=== PATIENT | female | born 1995 | race Caucasian/White ===

== ENCOUNTER → 2022-01-05 | Outpatient (CLI) | payer MEDICAID, SELFPAY ==
--- NOTE | 2022-01-05 17:54 | MRI_ITS ---
STUDY: MR Knee W/O Contrast 01/05/2022 7:02 PM REASON FOR EXAM: Female, 26 years old. left knee pain TECHNIQUE: Standardized fat and water weighted pulse sequences were obtained in all 3 orthogonal planes. COMPARISON: None. FINDINGS: Normal medial meniscus. Normal hyaline cartilage of the medial femorotibial compartment. Normal medial femoral condyle and tibial plateau. Normal medial collateral ligamentous complex (MCL). Normal distal semimembranosus, gracilis and semitendinosus tendons. Normal lateral meniscus. Normal hyaline cartilage of the lateral femorotibial compartment. There is reactive marrow edema of the lateral tibial plateau. There is reactive marrow edema of the proximal fibula. Normal proximal tibiofibular articulation. Normal lateral collateral (fibular) ligament. Normal popliteus tendon. Normal biceps femoris tendon. Normal anterior cruciate ligament (ACL). Normal posterior cruciate ligament (PCL). Normal congruent patellofemoral articulation. Normal hyaline cartilage of the patellofemoral compartment. Normal medial and lateral patellar retinaculum. Normal quadriceps tendon. Normal patellar tendon. Normal Hoffa''s fat pad. There is no joint effusion. The soft tissues are unremarkable. The otherwise visualized osseous structures are unremarkable. MRI/Lower Ext Joint Only (Routine) IMPRESSION: There is reactive marrow edema of the lateral tibial plateau. There is reactive marrow edema of the proximal fibula. Electronically Signed: Robert Alvarez MD at 19:04 EDT ,
== END | disposition home or self-care (01) ==
LOC: MRI 17:54
PROVIDERS: Referring Provider Nurse Practitioner; Visit Provider Nurse Practitioner
DX: S83.8X2A Sprain of other specified parts of left knee, initial encounter (principal)
CPT/HCPCS: 73721

== ENCOUNTER 2022-02-11 10:30 | Outpatient (RCR) | payer MEDICAID, SELFPAY ==
--- NOTE | 2022-01-14 13:24 | HP.PTEVAL_ITS ---
Patient's Visit Information SHAYY JONES is a 26 year old F referred to Physical Therapy by DILEEP Morrow with a diagnosis of REATIVE BONE MARROW EDEMA LEFT KNEE. Date of Evaluation: 01/14/22 Physical Therapist: Saul Guillaume, PT, Cert MDT, OCS - Visit Plan Frequency: 2x /Week Duration: 6 Weeks Plan: PT INTERVENTIONS MODALTIES PAIN RELEIVE ,PROGRESSION TO STRENGTHENING QUADS/HAMS/HIP ,AND FUNCTIONAL STRENGTH WITH BY MINDFULL OF GRADED PROGRESSION OF CLOSED CHAIN PROGRESSION - Subjective This 26 y/o female presents to physical therapy with right knee pain. 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 Patient waited ~ 2 weeks and finally seen Ortho did x-rays and MRI showed tibia plateau reactive bone marrow edema. Recommended PT and meds didn't help. Pain located global medial and superior patella. Pain described as sharp pain /pinching behind knee. Denies paresthesia/tingling . Aggravating factors squatting/kneeling/stairs/walking and standing extended periods . Alleviating none. Patient does ATV racing and said okay to continue which patients goal. Patient did have left knee surgery plica removed . Pain affects sleeping. Patient goal no pain racing and daily function. SOCIAL: single with 1 child. 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 GAIT: reciprocal pattern. NEURO: intact. PALAPTION: tender medial joint line tibia plateau ,superior patella. EDEMA: unremarkable. AROM: 0-140 degrees supine flexion. FLEXABILITY: hamstrings min tight. 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 SQUATS: knee valgus knee ,pain - Special Tests L Knee Miguel - Meniscus: Negative L Knee Apley - Meniscus: Negative L Knee Almaz - ACL: Negative L Knee Posterior Drawer - PCL: Negative L Knee Valgus - MCL: Negative L Knee Varus - LCL: Negative L Knee Patellar Grind - PFS: Negative - Balance/Special Test Scores Lower Extremity Functional Score: 36 - Goals Goal 1:: Patient to be I with HEP for knee Goal Time Frame: 4-6 Weeks Goal 2:: Patient to demonstrate 50% improvement with decrease pain and function with return to sport Goal Time Frame: 4-6 Weeks Goal 3:: Patient to demonstrate increase peak force of quads/hams/hip by 10 to improve avtivity and racing Goal Time Frame: 4-6 Weeks Goal 4:: Patient be able to lift ,squat /knee /stairs with min limitations to improve function and racing ATV Goal Time Frame: 4-6 Weeks Goal 5:: Patient to improve LFES score by 10 points or > to improve QOL and walking Goal Time Frame: 4-6 Weeks - Rehabilitation Potential Physical Therapy Diagnosis: This patient has pain in knee after landing awkwardly and twisted knee thus had MRI showed reactive to bone marrow from MRI with pain affects function with kneeling/squatting/stairs walking and racing with ATV racing thus benefit from skilled PT Rehabilitation Potential: Good - Anticipated Interventions Patient/Client Instruction: Educate patient on: Condition, Plan of Care For the Purpose of:: To decrease pain, To increase ROM, To improve muscle performance and motor function, To improve ability to perform ADL's, To increase tolerance to activity/condition/position, To improve ability of physical actions for home/community/work/leisure, To improve health of tissue, To improve endurance, To improve balance, Other Other: ATV RACING Therapeutic Exercise to Include: Strength training, Power training, Endurance training, Balance training, Agility training, Active ROM Comment: QUADS/HAMS/HIP For the Purpose of:: To decrease pain, To improve muscle performance and motor function, To improve performance and independence with ADL's, To improve ability of physical actions for home/community/work/leisure, To improve health of tissue, To decrease soft tissue restriction, To improve endurance, Other Other: ATV RACING TENS: Yes IF ES: Yes Cryotherapy (ice pack, ice massage): Yes Thermo therapy (hot pack): Yes Ultrasound (thermal/non thermal): Yes For the Purpose of:: To decrease pain, To improve nutrient delivery to tissue, To increase oxygenation perfusion, To improve muscle performance and motor function, To improve health of tissue, To decrease soft tissue restriction Thank you for the opportunity to evaluate your patient. For Medicare and Medicare HMO plans, please review the plan of care and approve it. It will need to be FAXED BACK to us at [phone] for Medicare purposes. For Medicare only, by signing this I certify the plan of care. Please let me know if there are questions or concerns regarding this plan of care. Physician Signature: Date:___
--- NOTE | 2022-02-11 11:04 | HP.PTDCSUM_ITS ---
It has been my pleasure to treat SHAYY JONES referred by Laurie Cloud NP- C, with the diagnosis of REACTIVE BONE MARROW EDEMA LEFT KNEE for a total of 6 visit(s). Discharge Date: 02/11/22 Please see the following information for a summary of their discharge status. Subjective: Doing well ..no pain. Seen last DR doing well Left Knee Pain Intensity (Out of 10): 0 % Improvement: 100 Objective/Function: GAIT: reciprocal pattern. PALAPTION: unremarkable. AROM: 0-145 SUPINE KNEE FLEXION. MMT: QUADS/HAMS 5/5,HIP 5/5. SQUATS NO PAIN Goal 1:: Patient to be I with HEP for knee Goal Progress: Goal Met Goal 2:: Patient to demonstrate 50% improvement with decrease pain and function with return to sport Goal Progress: Goal Met Goal 3:: Patient to demonstrate increase peak force of quads/hams/hip by 10 to improve avtivity and racing Goal Progress: Goal Met Goal 4:: Patient be able to lift ,squat /knee /stairs with min limitations to improve function and racing ATV Goal Progress: Goal Met Goal 5:: Patient to improve LFES score by 10 points or > to improve QOL and walking Goal Progress: Goal Met Plan: D/C Discharge Comments: HEP If there are questions or concerns regarding this patient's physical therapy, please feel free to call me at [phone]. Thank you for the referral of this patient. Sincerely, Saul Guillaume, PT, Cert MDT, OCS Balance/Gait/Functional tests - Balance/Special Test Scores Lower Extremity Functional Score: 75
== END 2022-02-11 19:00 | disposition home or self-care (01) ==
LOC: PT 10:30
PROVIDERS: Referring Provider Nurse Practitioner; Visit Provider Nurse Practitioner
DX: R93.7 Abnormal findings on diagnostic imaging of other parts of musculoskeletal system (principal); R60.0 Localized edema
CPT/HCPCS: 97110; 97161

== ENCOUNTER → 2022-05-27 | Outpatient (CLI) | payer BC, MEDICAID, SELFPAY ==
--- NOTE | 2022-05-27 11:04 | MRI_ITS ---
STUDY: MRI LEFT KNEE REASON FOR EXAM: Female, 27 years old. Pain/swelling/giving out TECHNIQUE: Standardized fat and water weighted pulse sequences were obtained in all 3 orthogonal planes. COMPARISON: X-ray of the left knee dated DECEMBER 17, 2021. MRI of the left knee dated JANUARY 05, 2022 FINDINGS: Previously seen reactive edema of the lateral tibial plateau and proximal aspect of the fibula has resolved. No marrow edema or occult fractures or osteochondral defects are seen on the current study. Normal medial meniscus. Normal hyaline cartilage of the medial femorotibial compartment. Normal medial femoral condyle and tibial plateau. Normal medial collateral ligamentous complex (MCL). Normal distal semimembranosus, gracilis and semitendinosus tendons. Normal lateral meniscus. Normal hyaline cartilage of the lateral femorotibial compartment. Normal lateral femoral condyle and tibial plateau. Normal proximal tibiofibular articulation. Normal lateral collateral (fibular) ligament. Normal popliteus tendon. Normal biceps femoris tendon. Normal anterior cruciate ligament (ACL). Normal posterior cruciate ligament (PCL). Normal congruent patellofemoral articulation. The trochlear groove is shallow There is diffuse, less than 50% thickness articular cartilage loss of the patellofemoral compartment. Normal medial and lateral patellar retinaculum. Normal quadriceps tendon. Normal patellar tendon. Normal Hoffa''s fat pad. Small joint effusion noted. The soft tissues are unremarkable. The otherwise visualized osseous structures are unremarkable. MRI/Lower Ext Joint Only (Routine) IMPRESSION: 1. Previously seen reactive edema of the lateral tibial plateau and proximal aspect of the fibula has resolved. 2. No marrow edema or occult fractures or osteochondral defects are seen on the current study. 3. Shallow trochlear groove 4. Small joint effusion Electronically Signed: Hernandez Perla MD at 14:54 EDT ,
== END | disposition home or self-care (01) ==
PROVIDERS: Referring Provider Nurse Practitioner; Visit Provider Nurse Practitioner
DX: M23.92 Unspecified internal derangement of left knee (principal); M79.89 Other specified soft tissue disorders
CPT/HCPCS: 73721

== ENCOUNTER 2022-06-29 08:00 | Outpatient (RCR) | payer BC, MEDICAID, SELFPAY ==
--- NOTE | 2022-06-01 09:30 | HP.PTEVAL ---
Patient's Visit Information SHAYY JONES is a 27 year old F referred to Physical Therapy by DILEEP Morrow with a diagnosis of Chrondromalacia of left knee. Date of Evaluation: 06/01/22 Physical Therapist: Sonya Hendricks DPT - Visit Plan Frequency: 2x /Week Duration: 4 Weeks Plan: Focus on LE and Core strength/stabilization- Patellar Edmonds,. Tapeing- ultrasound PRN. HEP Given IE: SLR, VMO SLR, Clams with GTB, Prone Hip Extn - Subjective Patient reports that she got better after therapy in January but the pain just came back- Pain is located on the top of the knee cap on the left knee. The pain is there all the time. Worst: 5/10 Agg: its just there all the time- walking hurts more. Eases: nothing Best: 5/10. Pain radiates to the mid thigh and then radiates to the ankle. Does have some Numbness in from her knee down randomly. Describes the pain as dull and achy. She has had an injection 3 years in her knee- which did not help. She had her Plica Band Removed about 3 years ago- that helped and she was painfree after that. Had and MRI last week- she some edema. No injection this time. In therapy they did exercise- but this time it would be different because she would be strengthing the muscles. Diagnosis of Chondro Malacia of the Patella. Sleep: does not wake her up. 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 PMHx/Meds: none - Objective Posture: fair throughout. Gait: slightlt antalgic- decreased stance on the left LE. Stairs: asc: recip with no HR. Desc: mild decrease control. HR/TR: able. SLS: 30 sec ROM: Knee: 0-140 degrees. Strength: Core: fair, Hip: 4+/5, Knee: Extn: 47.7, Flexion: 33.8, Ankle: 5/5. SLR: mild lag. Flex: HS: severe, Gastroc: moderate. Palpation: patellar tracks laterally. Decreased pain with McConnel Taping of the Patella. 47.7. 33.8 - Balance/Special Test Scores Lower Extremity Functional Score: 59 - Goals Goal 1:: Patient will be I with HEP and progression Goal Time Frame: 4-6 Weeks Goal 2:: Patient will demonstrate proper patellar tracking Goal Time Frame: 4-6 Weeks Goal 3:: Patient will maintain proper posture t/o tx session to demo increased core s/s Goal Time Frame: 4-6 Weeks Goal 4:: Patient will report 80% improvement Goal Time Frame: 4-6 Weeks - Rehabilitation Potential Physical Therapy Diagnosis: Patient presents with hypomobility- she has decreased LE and core strength/stabilization, flex and muscular endurance leading to poor patellar tracking and increased difficulty with ADL's. Rehabilitation Potential: Good - Anticipated Interventions Patient/Client Instruction: Educate patient on: Benefits of Fitness Program Therapeutic Exercise to Include: Strength training, Endurance training, Balance training, Coordination, Agility training, Body mechanics, Postural training, Flexibilty training, Gait and locomotor training, Neuromotor development, Dynamic Lumbar Stabilization, Scapular Strength/Stabilization For the Purpose of:: To improve muscle performance and motor function TENS: Yes Cryotherapy (ice pack, ice massage): Yes Thermo therapy (hot pack): Yes Ultrasound (thermal/non thermal): Yes Thank you for the opportunity to evaluate your patient. For Medicare and Medicare HMO plans, please review the plan of care and approve it. It will need to be FAXED BACK to us at [phone] for Medicare purposes. For Medicare only, by signing this I certify the plan of care. Please let me know if there are questions or concerns regarding this plan of care. Physician Signature: Date:
--- NOTE | 2022-06-29 08:57 | HP.PTDCSUM ---
It has been my pleasure to treat SHAYY JONES referred by DILEEP Morrow, with the diagnosis of Chrondromalacia of left knee for a total of 7 visit(s). Discharge Date: Please see the following information for a summary of their discharge status. Subjective: She is still having pain- she went to the surgeon- she is having a scope in the near future to make sure everything is okay inside from her first surgery. She feels that she is not making progress and the knee is not any stronger. Pain at its worst: 10/10- Best: 4/10. % Improvement: 0 Objective/Function: No change since IE Goal 1:: Patient will be I with HEP and progression Goal 2:: Patient will demonstrate proper patellar tracking Goal 3:: Patient will maintain proper posture t/o tx session to demo increased core s/s Goal 4:: Patient will report 80% improvement Plan: 06/29/22: Discharge- pt to have scope by MD. Focus on LE and Core strength/stabilization with Patellar Edmonds Taping and ultrasound PRN If there are questions or concerns regarding this patient's physical therapy, please feel free to call me at [phone]. Thank you for the referral of this patient. Sincerely, Sonya Hendricks, [facility] Balance/Gait/Functional tests - Balance/Special Test Scores Lower Extremity Functional Score: 62
== END 2022-06-29 10:20 | disposition home or self-care (01) ==
LOC: PT 08:00
PROVIDERS: Referring Provider Nurse Practitioner; Visit Provider Nurse Practitioner
DX: M22.40 Chondromalacia patellae, unspecified knee (principal); M25.562 Pain in left knee
CPT/HCPCS: 97035; 97110; 97162; 97164

== ENCOUNTER 2022-07-28 07:03 | Day surgery (SDC) | payer BC, MEDICAID, SELFPAY ==
[2022-07-28] VITALS (10 sets, daily range): BP systolic 103–117; BP diastolic 58–78; PULSE 60–88; RESP 16–18; TEMP 36.7–36.8; O2SAT 96–100; BMI 20.2
[2022-07-28 07:35] LABS: Internal QC Validated? YES +Cl - CLEAR BKGD; Pregnancy, Urine Negative Negative
[2022-07-28] MEDS: Lactated Ringers 1,000 ML 15 ML IV (07:46)
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
[2022-07-28] MEDS: Cefazolin 2 GM in 0.9% Normal Saline 100 ML IV (08:56)
[2022-07-28] MEDS: Epinephrine (1 mg/ml) 1 MG/ML VIAL (09:24)
--- NOTE | 2022-07-28 09:47 | OP.PCM_ITS ---
Problems Associated Problem List Diagnoses (1) Plica syndrome, left knee: Report of Operation Date of Procedure: 07/28/22 Pre-Operative Diagnosis: left knee plica syndrome Post-Operative Diagnosis: same Surgery/Procedure Performed:: left knee arthroscopy, debridement Surgeon: Migue Mckeon Type of Anesthesia: General and Local Anesthesiologist: Rush Rizo Estimated Blood Loss (mL): 10 Description of Procedure: Patient was brought to the operating room theater.? Placed supine on the opera ting room table.? All bony prominences appropriately padded.? SCD on the nonoperative side.? 2 g IV Ancef administered prior to the start of the procedure.? General anesthesia induced.? Stress positioner for the patient's left lower extremity.? Tourniquet applied to the thigh appropriately padded.? Left lower extremity prepped and draped in the usual sterile fashion with chlorhexidine-based prep solution allowing over 3 minutes drying time prior to draping.? Preoperative timeout performed to confirm the site patient and the surgery. Began by making standard anterolateral and anteromedial arthroscopy portals.? I examined the full intra-articular extent of the knee.? No loose bodies gutters normal.? Cartilage of the patellofemoral joint appeared normal. There is very slight grade 1 softening medial aspect of the lateral femoral condyle otherwise the cartilage in the lateral and medial compartments appeared normal. Medial lateral meniscus were stable and solid to probing. ACL was normal. Examination under anesthetic revealed full range of motion stable Almaz and pivot shift testing as well as medial and lateral corners. There was no evidence of medial sided plica that it slightly appeared to have scarred and regrown. I used a shaving instrument to gently debride away along the medial side of the knee intra-articularly. There is also some redundant tissue and synovial fraying at the distal pole the patella as well as at the lateral portal area. I gently debrided this again. I tested knee range of motion again full patellar tendon in continuity and no more crepitus seeming to come from the patellofemoral joint. Arthroscopy pictures taken and saved onto the system throughout the case. Case was terminated arthroscope withdrawn. Subcutaneous tissue closed with 3-0 Monocryl sutures. Skin cleaned with wet and dry dressing knee drained of any sort of intra-articular fluid. Skin cleaned with wet and dry dressing followed by Steri-Strips Adaptic 4 x 4 gauze abdominal pad dressing and 6 inch Michael bandage. Patient woken up from the general anesthetic transferred off the operating room table and taken to postanesthetic care unit in stable condition. All sponge needle instrument counts were correct no complications estimated blood loss 10 cc plan for the patient weightbearing as tolerated with crutches gentle range of motion follow-up in the office in 2 days time and discharged home when they are comfortable and stable. Complications none Admit VTE Documentation VTE Present on Admission: No VTE Mechan Device Prophylaxis: SCD's Reason prophylaxis not ordered:: Treatment Not Indicated Procedures Musculoskeletal [id number]: Other Procedure See Report
--- NOTE | 2022-07-28 09:51 | DCINST_ITS ---
Discharge Instructions Diet Discharge Diet: No restrictions Activity Discharge Activity: Return to Normal Activity and Use Crutches Weight Bearing Status: Weight bearing as tolerated Dressing / Incision Call your doctor if your incision/area has: Continuous Slow Oozing, Sudden Increased Bleeding, Increased Pain/ Swelling, Increased Redness, Foul Smelling Discharge and Swelling at the incision site Remove Dressing in: leave in place till F/U Follow Up Care Please Follow Up With: Migue Mckeon MD When: 2 days Test Results: Test results from this visit will be discussed in further detail at your follow- up appointment, if applicable. Discharge Plan Admission Attending Provider: Migue Mckeon Primary Care Provider: Care Physician,No Primary Instructions Patient Instructions: After Knee Arthroscopy Discharge Orders/Prescriptions Prescriptions: New oxycodone-acetaminophen [Percocet] 5-325 mg tablet 1 tab PO Q4H MDD 6 PRN (Reason: pain) 7 Days Qty: 20 0RF No Action acetaminophen [Tylenol] 325 mg Tablet 650 mg PO Q4H PRN (Reason: Pain) Referrals / Follow Up: Migue Mckeon MD [Med Staff - Active Staff] - Care Physician,No Primary [Primary Care Provider] - Disposition Disposition (needs filled in before D/C Order can be placed): Home, Self Care
[2022-07-28] MEDS: oxyCODONE 5 MG Tablet PO (11:55)
[2022-07-28] MEDS: DiphenhydrAMINE 50 MG/ML Syringe 25 MG IV (12:26)
[2022-07-28] MEDS: Metoclopramide 10 MG/2 ML Vial IV (12:28)
== END 2022-07-28 13:09 | disposition home or self-care (01) ==
LOC: SDC 07:05 → AC 07:06
PROVIDERS: Anesthesiology; Referring Provider Orthopaedic Surgery Sports Medicine; Visit Provider Orthopaedic Surgery Sports Medicine
PROC: (CPT 29870; principal; 2022-07-28 08:50)
DX: M67.52 Plica syndrome, left knee (principal)
CPT/HCPCS: 29877; 01400; 81025; J7120; J2405

== ENCOUNTER 2022-08-04 15:46 | Outpatient (RCR) | payer BC, MEDICAID, SELFPAY ==
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
== END 2022-08-04 19:00 | disposition home or self-care (01) ==
LOC: PT 15:46
PROVIDERS: Referring Provider Orthopaedic Surgery Sports Medicine; Visit Provider Orthopaedic Surgery Sports Medicine
DX: M67.52 Plica syndrome, left knee (principal)
CPT/HCPCS: 97161

== ENCOUNTER 2022-12-01 07:00 | Outpatient (RCR) | payer BC, MEDICAID, SELFPAY ==
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
--- NOTE | 2022-12-13 09:38 | HP.PT.NRP ---
SHAYY JONES was seen in my office for initial evaluation on 11/24/22. The following Plan of Care was established for this patient: Initial Frequency: 2x /Week Initial Duration: 4 Weeks Patient/Client Instruction: Educate patient on: Benefits of Fitness Program Therapeutic Exercise to Include: Strength training, Endurance training, Agility training, Body mechanics, Postural training, Flexibilty training, Neuromotor development, Passive ROM, Active ROM, Dynamic Lumbar Stabilization, Scapular Strength/Stabilization For the Purpose of:: To improve muscle performance and motor function Manual Therapy Techniques to Include: Soft tissue mobilization TENS: Yes Cryotherapy (ice pack, ice massage): Yes Thermo therapy (hot pack): Yes This patient was last seen in our office 12/01/22. Pertinent comments regarding their Physical therapy will appear below: Pt. was called today. She reports having in the family and would like to cancel her appointments and be Dc from PT at this point in time. Pt. will be DC to physician at this point in time. At this point I will be discontinuing this patient from physical therapy. I would be happy to see this patient again in the future if found appropriate by the physician. Thank you! Rajesh Johnson, DPT Balance/Gait/Functional tests - Balance/Special Test Scores Quick DASH Score: 25.0000
== END 2022-12-01 19:00 | disposition home or self-care (01) ==
LOC: PT 07:00
PROVIDERS: Referring Provider Orthopaedic Surgery Sports Medicine; Visit Provider Orthopaedic Surgery Sports Medicine
DX: M24.811 Other specific joint derangements of right shoulder, not elsewhere classified (principal)
CPT/HCPCS: 97110; 97161

== ENCOUNTER → 2023-01-12 | Outpatient (CLI) | payer BC, MEDICAID, SELFPAY ==
[2023-02-05 21:05] LABS: HPV Reflexed? NOT INDICATED
== END | disposition home or self-care (01) ==
LOC: WOBLAB 11:14
PROVIDERS: Visit Provider Student in an Organized Health Care Education/Training Program
DX: Z12.4 Encounter for screening for malignant neoplasm of cervix (principal)
CPT/HCPCS: 88175; G0145

== ENCOUNTER → 2023-01-26 | Outpatient (CLI) | payer BC, MEDICAID, SELFPAY ==
--- NOTE | 2023-01-26 09:47 | RAD_ITS ---
CLINICAL HISTORY: Female, 27 years old. Right shoulder arthrogram. PROCEDURE: ARTHROGRAM - RIGHT SHOULDER CONSENT: The procedure as well as the benefits and possible complications including infection and bleeding were explained to the patient. Informed consent was obtained. FLUOROSCOPY TIME (if supplied): (42 seconds) minutes/seconds. 6.4 mGy Injection Information: 10 cc of dilute MRI contrast. Number of images obtained: 3 TECHNIQUE: (All elements of maximal sterile barrier technique followed, including US elements as applicable) The patient was in the supine position. The overlying skin was prepped and draped in usual sterile fashion. Following local anesthetic application on the direct fluoroscopic guidance, puncture of the shoulder joint was obtained the 22-gauge spinal needle. 2 cc of Isovue-300 was injected for confirmation. Following this, 10 cc of dilute MRI contrast was injected. The patient tolerated the procedure well. RAD/Arthrogram Shoulder IMPRESSION: Right shoulder arthrogram for MRI examination. Electronically Signed: Chin Guzman MD at 11:06 EDT ,
[2023-01-26] MEDS: Lidocaine 2% (5ml sdv) 5 ML VIAL.MPF INFILT (10:20)
[2023-01-26] MEDS: Gadoterate Meglumine Diluted 10 ML, Iopamidol 5 ML, Lidocaine 1% (20 ml mdv) 5 ML, Epin... INTRAARTIC (10:22)
[2023-01-26] MEDS: Iopamidol 10 ML in Syringe 1 EACH 600 ML INTRAARTIC (10:22)
--- NOTE | 2023-01-26 11:30 | MRI_ITS ---
STUDY: MRI ARTHROGRAM RIGHT SHOULDER REASON FOR EXAM: Female, 27 years old. Pain. TECHNIQUE: Standardized fat and water weighted pulse sequences were obtained in all 3 orthogonal planes following the intra-articular administration of contrast. COMPARISON: X-ray November 11, 2022. FINDINGS: Normal supraspinatus tendon. Normal infraspinatus tendon. Normal subscapularis tendon. Normal teres minor tendon. Normal supraspinatus muscle. Normal infraspinatus muscle. Normal subscapularis muscle. Normal teres minor muscle. Normal glenohumeral articulation. Normal humeral head and visualized proximal humerus. Normal biceps labral complex. Normal intracapsular long biceps tendon. Normal labrum. Normal capsulo- ligamentous complex. Normal rotator interval. Normal acromioclavicular articulation. There is a Type IV morphology (inferior convex) acromion, with a neutral orientation. There is no subacromial-subdeltoid bursal fluid. Normal visualized coracohumeral and coracoacromial ligaments. Normal quadrilateral space. Normal axillary space. Normal deltoid muscle. Normal trapezius muscle. MRI/Upper Ext Jt Only W/Contrast IMPRESSION: Normal MRI arthrogram of the right shoulder. No rotator cuff tear or tear of the labrum. Electronically Signed: Ralf Rizzo MD at 20:58 EDT ,
== END | disposition home or self-care (01) ==
LOC: RAD 09:46
PROVIDERS: Referring Provider Orthopaedic Surgery Sports Medicine; Visit Provider Orthopaedic Surgery Sports Medicine
DX: M25.511 Pain in right shoulder (principal)
CPT/HCPCS: 23350; 73040; 73222; Q9967

== ENCOUNTER 2023-04-13 08:17 | Day surgery (SDC) | payer BC, MEDICAID, SELFPAY ==
[2023-04-13 08:45] VITALS: BP 94/59; PULSE 57; RESP 16; TEMP 36.6; O2SAT 100; BMI 18.8
[2023-04-13] MEDS: Lactated Ringers 1,000 ML 15 ML IV (08:55)
[2023-04-13 09:22] LABS: Internal QC Validated? YES +Cl - CLEAR BKGD; Pregnancy, Urine Negative Negative
--- NOTE | 2023-04-13 09:31 | HP.PCM_ITS ---
HPI - General HPI Narrative SHAYY JONES, is a 27 F who presents for right shoulder arthroscopy, subacromial decompression, debridement, possible stabilization or rotator cuff repair or biceps tenodesis. RAB and narcotic counselling. No changes to H and P. Right shoulder marked. OK to proceed. Getting a block. MR#: [id number] Acct: [id number] Name: SHAYY JONES Rep #: [id number] : 1995 Provider: Dr. Migue Mckeon MD Age/Sex: 27/F [place] [facility] [place] Status: Signed Intake Vital Signs 11/10/2309:22 Height 5 ft 6 in Intake Visit Reasons: RIGHT SHOULDER Chief Complaint: right shoulder Accompanied by: Self Is patient in pain?: Yes Pain scale (1-10): 4 Allergies No Known Allergies Allergy (Verified 08/10/22 12:48) Medications acetaminophen 325 mg tablet (Tylenol) 650 mg PO Q4H PRN Pain 07/22/22 [History Confirmed 03/01/23] norgestimate 0.25 mg-ethinyl estradiol 35 mcg tablet (Aminta) ea PO 11/11/22 [History Confirmed 03/01/23] PFSH Medical History (Updated 03/01/23 @ 14:07 by Migue Mckeon MD) Acute medial meniscal injury of left knee Anemia Bone marrow edema Chondromalacia, patella Derangement of left knee Derangement of right acromioclavicular joint Impingement of right shoulder Plica syndrome, left knee Right shoulder pain Wears partial dentures Surgical History Hx of section Hx of left knee surgery Family History Mother POTS (postural orthostatic tachycardia syndrome)Grandfather CVA (cerebral vascular accident) Myocardial infarction DiabetesGrandmother CVA (cerebral vascular accident) Social History household members: spouse, family and children number of children: 1 Smoking Status: Never smoker alcohol intake: never HPI RIGHT SHOULDER Details: Parts of this documentation were recorded by a scribe, this documentation accurately reflects the service provided and the decisions made by me, Dr. Migue Mckeon MD 03/01/23 [id number]. SHAYY JONES is a 27 year old F here today for follow-up of right shoulder pain. The pain is just a slightly better but it is still present on the lateral side somewhat up into the superior and lateral aspect of the shoulder worse with activity. Does feel occasionally like it is shifting anteriorly. Ortho Exam General General: Yes no acute distress Neurologic: Yes alert and Yes oriented x3 Psychologic: Yes reasonable and appropriate Right Shoulder Skin/Wound: Yes CDI, No ecchymosis, No erythema and No swelling Testing: Positive Hawkin's, Neer's, Speed's, TTP Biceps, AROM-Forward Elevation 0-180, PROM-External Rotation at side 0-60 and [place]; Negative TTP AC Joint, Drop Arm, Sulcus Sign, translation or Load and Shift Supplemental Info [facility] Imaging Services [address] [facility] [place] [address] Upper Ext Jt Only W/Contrast MR#: [id number] Acct: [id number] Name: SHAYY JONES JAMAL Rep #: [id number] : 1995 F 27 From: Ralf Rizzo MD PCP: ALEXIS TELLEZ Status: REG CLI Study: Upper Ext Jt Only W/Contrast Date of Exam: 01/26/23 Exam# [id number] Ordering Dr: Migue Mckeon MD STUDY: MRI ARTHROGRAM RIGHT SHOULDER REASON FOR EXAM: Female, 27 years old. Pain. TECHNIQUE: Standardized fat and water weighted pulse sequences were obtained in all 3 orthogonal planes following the intra-articular administration of contrast. COMPARISON: X-ray November 11, 2022. FINDINGS: Normal supraspinatus tendon. Normal infraspinatus tendon. Normal subscapularis tendon. Normal teres minor tendon. Normal supraspinatus muscle. Normal infraspinatus muscle. Normal subscapularis muscle. Normal teres minor muscle. Normal glenohumeral articulation. Normal humeral head and visualized proximal humerus. Normal biceps labral complex. Normal intracapsular long biceps tendon. Normal labrum. Normal capsulo- ligamentous complex. Normal rotator interval. Normal acromioclavicular articulation. There is a Type IV morphology (inferior convex) acromion, with a neutral orientation. There is no subacromial-subdeltoid bursal fluid. Normal visualized coracohumeral and coracoacromial ligaments. Normal quadrilateral space. Normal axillary space. Normal deltoid muscle. Normal trapezius muscle. MRI/Upper Ext Jt Only W/Contrast IMPRESSION: Normal MRI arthrogram of the right shoulder. No rotator cuff tear or tear of the labrum. Electronically Signed: Ralf Rizzo MD at 20:58 EDT , Coding Level of Care Code Off vis,est,level 3 Diagnoses Right shoulder pain M25.511 Impingement of right shoulder M25.811 Assessment and Plan Assessment and Plan (1) Right shoulder pain: Status: Acute Plan: 27-year-old female with ongoing R shoulder pain despite extensive conservative management including injection and therapy. Most of her pain seems to be on the lateral aspect of the shoulder had some mild relief with the cortisone injection. At this point she can continue on nonsurgical management or surgical option would be right shoulder arthroscopy, subacromial decompression, debridement, possible stabilization or rotator cuff repair or biceps tenodesis. 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 The patient would like to go ahead with surgery explained the recovery 4 to 6 weeks if this is a simple debridement or up to 4.5 months for stabilization may need a separate incision if she requires a biceps tenodesis for an undiagnosed SLAP tear. She understands wishes to proceed with the surgery. We will delay over 6 weeks until end march for the surgery to decrease time from the injection (incr risk of infection). Pros and cons risks and benefits were discussed with the patient including but not limited to infection, pain, stiffness, bleeding, damage to surrounding structures, neurovascular injury, recurrence or retear, failure or wear of hardware or fixation, instability, fracture, deep vein thrombosis and pulmonary embolism, anesthetic risks, , patient dissatisfaction, need for further surgery and other risks. Patient understood and wished to proceed with surgery, and signed the informed consent documentation. (2) Impingement of right shoulder: [facility] Medical History (Updated 04/05/23 @ 11:00 by Heena Green) Acute medial meniscal injury of left knee Anemia Bone marrow edema Chondromalacia, patella Derangement of left knee Derangement of right acromioclavicular joint Impingement of right shoulder Plica syndrome, left knee PONV (postoperative nausea and vomiting) Right shoulder pain Wears partial dentures Home Medications acetaminophen 325 mg tablet (Tylenol) 650 mg PO Q4H PRN Pain 07/22/22 [History Last Taken Unknown] Allergy/AdvReac Type Severity Reaction Status Date / Time No Known Allergies Allergy Verified 04/13/23 08:43 Family History Mother POTS (postural orthostatic tachycardia syndrome) Grandfather CVA (cerebral vascular accident) Myocardial infarction Diabetes Grandmother CVA (cerebral vascular accident) Surgical History Hx of section Hx of left knee surgery Social History household members: spouse, family and children number of children: 1 Smoking Status: Never smoker alcohol intake: never Vital Signs Vital Signs Vital Signs: 04/13/23 08:45 Temperature 97.8 F Temperature Source Oral Pulse Rate 57 L Respiratory Rate 16 Blood Pressure 94/59 L Blood Pressure Mean 70 Blood Pressure Source Monitor Blood Pressure Position Semi-Fowlers Blood Pressure Location Left Arm Pulse Ox 100 Oxygen Delivery Method Room Air Weight Weight: 116 lb 13.52 oz Body Mass Index (BMI) 18.8 Results Lab / Micro Data Labs: Laboratory Results - last 24 hr 04/13/23 08:35: Urine Test Negative
[2023-04-13] MEDS: Cefazolin 2 GM in 0.9% Normal Saline 100 ML IV (10:00)
[2023-04-13] MEDS: Epinephrine (1 mg/ml) 1 MG/ML VIAL (11:18)
--- NOTE | 2023-04-13 11:37 | OP.PCM_ITS ---
Report of Operation Date of Procedure: 04/13/23 Pre-Operative Diagnosis: right shoulder possible instability and impingement sy ndrome Post-Operative Diagnosis: Right shoulder instability and impingement syndrome with SLAP tear Surgery/Procedure Performed:: Right shoulder arthroscopy, subacromial decompression, debridement and stabilization Surgeon: Migue Mckeon Type of Anesthesia: Block,Regional and General Anesthesiologist: Anthony Blackman Estimated Blood Loss (mL): 50 Description of Procedure: Patient brought to the operating room theater. Placed supine on the table. General anesthesia induced. 2 g IV Ancef administered prior to the start of the case. Patient transferred the right side up lateral decubitus position. Beanbag positioner used axillary roll placed. SCDs on the legs. All bony prominences appropriately padded. Upper extremity prepped and draped in the usual sterile fashion with chlorhexidine-based prep solution allowing over 3 minutes drying time prior to draping. 5 pounds of traction with 45 degrees of abduction was used for the upper extremity. Preoperative timeout performed to confirm the site the patient and the surgery. Did a preoperative examination under anesthetic there seem to be 2+ anterior instability but full range of motion. Began by inserting the arthroscope into the intra-articular portion of the shoulder through a standard posterior portal. Did a full diagnostic arthroscopy. Established anterior portal through rotator interval, just posterior to biceps tendon. Used arthrex 7x7 canula. Cartilage on the glenoid and humeral head was normal. Undersurface the rotator cuff tendon as well as subscapularis and rest of the rotator cuff was normal. No loose body. Axillary recess normal. Biceps tendon appeared normal although there was anterior leading edge fraying and partial detachment at the anterior aspect of the biceps root that extended down to about the 3:30 position in the anterior glenoid. Rest of the labrum was normal and stable to probing. As such I decided to do a SLAP repair and labral repair in this area, despite the potential for stiffness the patient had anterior laxity on EUA and tearing anteriorly. I used shaving instrument to clean up any fraying of the labrum as well as create a bleeding bony bed of healing at the anterior aspect of the labrum and at the biceps root. I used 45 degree curved instrument to the right to pass the nitinol wire, then suttling labral tape for simple suture configuration and 2.9 mm Arthrex bio composite push lock anchors. 1 anchor just anterior to the biceps root and then 2 more at the 2 and 3:00 positions. Labral repair was probed found to be stable. Pictures taken and saved throughout the case onto the system. I then put the scope in the subacromial space. Established lateral portal. Did a subacromial decompression using the he instrument to flat margins for minor amount of downsloping. There is moderate amount of bursitis which I debrided using shaving instruments. No cuff tear. Case terminated arthroscopic pictures taken within the system. Wounds cleaned with wet and dry dressing followed by closure of the portals with 3-0 Monocryl. Steri-Strips followed by Adaptic gauze and ABD pads with cloth tape and abduction pillow sling for the upper extremity placed. Patient woken up from the general anesthetic transferred off the operating table and taken to postanesthetic care unit in stable condition. All sponge needle instrument counts were correct no complications. CPT?code 96734, 35576 Complications none Admit VTE Documentation VTE Present on Admission: No VTE Mechan Device Prophylaxis: SCD's VTE Pharm Prophylaxis ordered?: No Reason prophylaxis not ordered:: Treatment Not Indicated Procedures Musculoskeletal [id number]-29xxx: Other Procedure See Report
[2023-04-13 11:48] VITALS: BP 102/88; BP 94/59; PULSE 67; RESP 16; TEMP 36.4; O2SAT 98
--- NOTE | 2023-04-13 11:48 | DCINST_ITS ---
Discharge Instructions Diet Discharge Diet: No restrictions Activity Ice area for (Minutes): 10 Lifting Restrictions: pendulums four times a day, ok for hand wrist elbow ROM Keep extremity elevated above heart level: Operative Extremity Dressing / Incision Call your doctor if your incision/area has: Continuous Slow Oozing, Sudden Increased Bleeding, Increased Pain/ Swelling, Increased Redness, Foul Smelling Discharge and Swelling at the incision site Change Dressing in: leave in place till F/U Cleanse incision/area with: Do not get Incision Wet Follow Up Care Please Follow Up With: Migue Mckeon MD When: 2 days Test Results: Test results from this visit will be discussed in further detail at your follow- up appointment, if applicable. Discharge Plan Admission Attending Provider: Migue Mckeon Instructions Patient Instructions: After Shoulder Arthroscopy Discharge Orders/Prescriptions Prescriptions: New oxycodone-acetaminophen [Percocet] 5-325 mg tablet 1 tab PO Q6H MDD 6 PRN (Reason: pain) 5 Days Qty: 30 0RF No Action acetaminophen [Tylenol] 325 mg Tablet 650 mg PO Q4H PRN (Reason: Pain) Referrals / Follow Up: Migue Mckeon MD [Med Staff - Active Staff] - Disposition Disposition (needs filled in before D/C Order can be placed): Home, Self Care
[2023-04-13 12:00] VITALS: BP 125/84; BP 94/59; PULSE 66; RESP 16; O2SAT 97
[2023-04-13 12:15] VITALS: BP 124/86; BP 94/59; PULSE 61; RESP 16; O2SAT 100
[2023-04-13 12:30] VITALS: BP 120/78; BP 94/59; PULSE 55; RESP 16; TEMP 36.4; O2SAT 100
[2023-04-13] MEDS: Oxycodone/Apap 5/325 Tablet PO (12:50)
[2023-04-13 13:23] VITALS: BP 118/68; BP 94/59; PULSE 85; RESP 16; TEMP 36.4; O2SAT 100
--- NOTE | 2023-04-13 13:27 | SUR.PHASEII ---
SPOKE WITH DR. SAAVEDRA TO UPDATE HIM ON PT STATUS, PT IS MEETING ALL D/C CRITERIA VSS PAIN IS TOLERABLE. PER OK TO D/C THE PT TO HOME.
== END 2023-04-13 13:30 | disposition home or self-care (01) ==
LOC: SDC 08:22 → AC 08:27
PROVIDERS: Anesthesiology; Referring Provider Orthopaedic Surgery Sports Medicine; Visit Provider Orthopaedic Surgery Sports Medicine
PROC: (CPT 29805; principal; 2023-04-13 09:50)
DX: M25.311 Other instability, right shoulder (principal); M75.41 Impingement syndrome of right shoulder; S43.431A Superior glenoid labrum lesion of right shoulder, initial encounter; X58.XXXA Exposure to other specified factors, initial encounter
CPT/HCPCS: 29826; 29806; 64415; 01630; 81025; J7120; J2405

== ENCOUNTER 2023-10-04 11:00 | Outpatient (RCR) | payer BC, MEDICAID, SELFPAY ==
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
--- NOTE | 2023-11-21 10:59 | HP.PTDCNRP_ITS ---
Patient Information Patient Information: SHAYY JONES was seen in my office for initial evaluation on 09/26/23. The following Plan of Care was established for this patient: POC Established Initial Frequency: 2x /Week Initial Duration: 4 Weeks Anticipated Interventions Patient/Client Instruction: Educate patient on: Benefits of Fitness Program Therapeutic Exercise to Include: Strength training, Endurance training, Balance training, Coordination, Agility training, Body mechanics, Postural training, Flexibilty training, Gait and locomotor training, Neuromotor development, Passive ROM, Active ROM, Dynamic Lumbar Stabilization and Scapular Strength/Stabilization For the Purpose of:: To improve muscle performance and motor function TENS: Yes Cryotherapy (ice pack, ice massage): Yes Thermo therapy (hot pack): Yes Last Seen Last Seen: This patient was last seen in our office . Pertinent comments regarding their Physical therapy will appear below: Patient to return to MD for further evaluation due to poor tolerance to PT. At this point I will be discontinuing this patient from physical therapy. I would be happy to see this patient again in the future if found appropriate by t he physician. Thank you! Sonya Hendricks DPT Balance/Gait/Functional tests Balance/Special Test Scores Lower Extremity Functional Score: 49
== END 2023-10-04 19:00 | disposition home or self-care (01) ==
LOC: PT 11:00
PROVIDERS: Referring Provider Orthopaedic Surgery Sports Medicine; Visit Provider Orthopaedic Surgery Sports Medicine
DX: M25.551 Pain in right hip (principal)
CPT/HCPCS: 97110; 97140; 97162

== ENCOUNTER → 2023-11-01 | Outpatient (CLI) | payer BC, MEDICAID, SELFPAY ==
--- NOTE | 2023-11-01 11:36 | MRI_ITS ---
STUDY: MRI ARTHROGRAM OF THE RIGHT HIP REASON FOR EXAM: Female, 28 years old. RT HIP PAIN, R/O LABRUM TEAR -- ARTHROGRAM TECHNIQUE: 10 mL of dilute gadolinium arthrogram solution was injected into the right hip joint. MRI was obtained in all 3 orthogonal planes. COMPARISON: Pelvis and right hip radiographs dated 09/20/2023. FINDINGS: There is a tear of the right anterior acetabular labrum (sagittal T1 series 6 image 10). Normal hip joint without articular joint space narrowing. Normal acetabulum. Normal femoral head. Normal femoral neck and intratrochanteric region. Normal gluteus minimus, medius and iliopsoas tendons and distal insertions. There is muscle edema within the iliopsoas myotendinous junction (sagittal T2 series 7 images 13-16), which could be due to the anesthetic injection versus strain. There is no trochanteric, iliopsoas or iliopectineal bursitis. Normal right superior and inferior pubic rami. Normal pubic symphysis. Normal right ischial tuberosity. Normal origin of the right hamstring tendons. Normal visualized right iliac wing. Normal visualized soft tissue structures of the pelvis. MRI/Lower Ext/Jt Only/W Contrast IMPRESSION: Tear of the right anterior acetabular labrum. Muscle edema within the iliopsoas myotendinous junction, which could be due to the anesthetic injection versus strain. Electronically Signed: Luis Eduardo Figueroa MD at 14:58 EDT ,
[2023-11-01] MEDS: Lidocaine 2% (5ml sdv) 5 ML VIAL.MPF INFILT (11:55)
[2023-11-01] MEDS: Gadoterate Meglumine Diluted 10 ML, Iopamidol 5 ML, Lidocaine 1% (20 ml mdv) 5 ML, Epin... INTRAARTIC (12:00)
[2023-11-01] MEDS: Iopamidol 10 ML in Syringe 1 EACH 600 ML INTRAARTIC (12:00)
--- NOTE | 2023-11-01 12:22 | PCM.OP.PRO ---
Procedure Report Date of Procedure: 11/01/23 Assessment & Plan Assessment/Plan (1) Right hip pain: PLAN: PROCEDURE: Arthrogram-right hip ORDERING PROVIDER: Dr. Mckeon INDICATION: Female, 28 years old. Right hip pain. PROVIDER: Apryl Guillaume APRN-BALDEV CONSENT: The procedure as well as the benefits and possible complications including bleeding and infection were explained to the patient. Informed consent was obtained. TECHNIQUE: The patient was positioned supine. The overlying skin was prepped and draped in the usual sterile fashion. Following injection of local anesthetic with 2% lidocaine and under direct fluoroscopic guidance, a 22-gauge spinal needle was placed into the right hip joint. 2 cc of Isovue 300 was injected for confirmation. Following this, 10 cc of arthrogram contrast (gadoterate, iopamidol, lidocaine, and epinephrine), compounded by pharmacy, was injected. All elements of maximal sterile barrier technique followed. Patient tolerated procedure well. IMPRESSION: Successful fluoroscopic guided right hip arthrogram. Procedures Radiology Radiology Xray Procedures: 35996 Arthrogram Hip
== END | disposition home or self-care (01) ==
LOC: RAD 11:30
PROVIDERS: Referring Provider Orthopaedic Surgery Sports Medicine; Visit Provider Orthopaedic Surgery Sports Medicine
DX: M25.551 Pain in right hip (principal)
CPT/HCPCS: 27093; 73722; 77002; Q9967

== ENCOUNTER 2024-03-02 08:00 | Outpatient (RCR) | payer SELFPAY ==
--- NOTE | 2024-02-24 08:22 | HP.PTEVAL_ITS ---
Patient's Visit Information Visit Information Visit Information: SHAYY AGUIAR is a 28 year old F referred to Physical Therapy by Dr. Migue Mckeon MD with a diagnosis of L knee pain. Date of Evaluation: 02/24/24 Physical Therapist: Rush Burnett, MILADYT, OCS, CSCS Visit Plan Frequency: 3x /Week Duration: 4-6 Weeks Plan: 3x/week for 4-6 weeks for 1. activity modification to avoid aggravating activities 2. rollout and stretch L quad until symmetrical with R. 3. strengthen and progress to HEP on hip stabs, core stabs and quad [id number] at gym and via HEP Pt deborah goes to gym for leg press and sqats 4 times per week. 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 Has had plica band removed 2x latest 2 yrs ago. Had x ray but nothing on it. Doctor wants MRI but needs PT. Pain is medial anterior L knee and under knee cap. It is constant but worse with activitiy volume. Stopped going to gym a while ago for no reason. Back in the gym now but not too bad. Doing squats and leg press. Races AT[employer] and does Ok during race but after it hurts. Has knee braces on both knees with racing. Races every other weekend for two more weeks and then will be done until next October. Practices every weekend. 11-5. no other hobbies. Employed as claims processor, desk work. no problem with this. Basic ADLS are pretty normal. Pain L knee: Pain Intensity (Out of 10): 3 Pain Intensity Range: 1 and 6 Comment: worse with racing after the race Objective Objective: Walks without antalgia , trasnfers without UE, steps reciprocal without rails. No pain today with walking but 3/10 sitting. Full aROM B knees without increased pain. reflexes 1/3 B patella and achilles Sensation WNL to gross light touch B LE. strength core is 3+/5 adn weak and unstable with hip testing, hip strength B rotations 3/5 and IR with hip flexion testing 4-, abd and ext 3+ B. No pain quad L is tight vs R missing 5 degrees of flexion in prone quad stretch vs R. - varus and valgus testing - ant drawer - post sag - bounce home tender to touch medial and lateral underside patella and into fat pad medially. Very little muscle mass visible in long legs causing physica to wrok against her for stability of knees. Balance/Special Test Scores Lower Extremity Functional Score: 57 Goals Goal 1:: I aopropr quad, hip, core strength to limit future problems Goal Time Frame: 4-6 Weeks Goal 2:: Painfree at rest and 80% better overall to 1/10 at worst and manageable Goal Time Frame: 4-6 Weeks Goal 3:: LEFS 72 Goal Time Frame: 4-6 Weeks Rehabilitation Potential Physical Therapy Diagnosis: weakness core and hips and quads and tightn quads contributing to knee inflammation. Rehabilitation Potential: Fair Anticipated Interventions Patient/Client Instruction: Educate patient on: Condition For the Purpose of:: To decrease pain, To increase ROM, To improve muscle performance and motor function and To increase tolerance to activity/condition/position Therapeutic Exercise to Include: Strength training, Flexibilty training and Gait and locomotor training For the Purpose of:: To decrease pain, To increase ROM, To improve nutrient delivery to tissue, To improve muscle performance and motor function and To increase tolerance to activity/condition/position Manual Therapy Techniques to Include: Passive ROM and Soft tissue mobilization For the Purpose of:: To increase ROM, To improve nutrient delivery to tissue and To improve muscle performance and motor function Cryotherapy (ice pack, ice massage): Yes For the Purpose of:: To decrease pain and To decrease swelling/inflammation Text: Thank you for the opportunity to evaluate your patient. For Medicare and Medicare HMO plans, please review the plan of care and approve it. It will need to be FAXED BACK to us at [phone] for Medicare purposes. For Medicare only, by signing this I certify the plan of care. Please let me know if there are questions or concerns regarding this plan of care. Physician Signature: Date:
--- NOTE | 2024-05-07 08:36 | HP.PT.NRP ---
Patient Information Patient Information: SHAYY AGUIAR was seen in my office for initial evaluation on 02/24/24. The following Plan of Care was established for this patient: POC Established Initial Frequency: 3x /Week Initial Duration: 4-6 Weeks Anticipated Interventions Patient/Client Instruction: Educate patient on: Condition For the Purpose of:: To decrease pain, To increase ROM, To improve muscle performance and motor function and To increase tolerance to activity/condition/position Therapeutic Exercise to Include: Strength training, Flexibilty training and Gait and locomotor training For the Purpose of:: To decrease pain, To increase ROM, To improve nutrient delivery to tissue, To improve muscle performance and motor function and To increase tolerance to activity/condition/position Manual Therapy Techniques to Include: Passive ROM and Soft tissue mobilization For the Purpose of:: To increase ROM, To improve nutrient delivery to tissue and To improve muscle performance and motor function Cryotherapy (ice pack, ice massage): Yes For the Purpose of:: To decrease pain and To decrease swelling/inflammation Last Seen Last Seen: This patient was last seen in our office 03/02/24. Pertinent comments regarding their Physical therapy will appear below: Pt seen 3 visits of POC and then cancelled adn no showed for the next 4 without rescheduling. At this point, I will discontinue due to nonattendance. At this point I will be discontinuing this patient from physical therapy. I would be happy to see this patient again in the future if found appropriate by the physician. Thank you! Rush Burnett, DPT, OCS, CSCS Balance/Gait/Functional tests Balance/Special Test Scores Lower Extremity Functional Score: 57
== END 2024-03-02 19:00 | disposition home or self-care (01) ==
LOC: PT 08:00
PROVIDERS: Referring Provider Orthopaedic Surgery Sports Medicine; Visit Provider Orthopaedic Surgery Sports Medicine
DX: M25.562 Pain in left knee (principal)
CPT/HCPCS: 97110; 97161

== ENCOUNTER 2024-07-22 08:46 | Emergency (ER) | payer OTHER, SELFPAY ==
[2024-07-22 08:46] VITALS: BP 126/67; PULSE 79; RESP 20; TEMP 36.1; O2SAT 94; BMI 21.5
--- NOTE | 2024-07-22 09:04 | RAD_ITS ---
INDICATION: chest pain EXAMINATION/TECHNIQUE: X-RAY - XR Chest 1 View COMPARISON: No relevant prior comparison study available FINDINGS: LINES/DEVICES: None. LUNGS: No consolidation, edema or effusion. No pneumothorax. MEDIASTINUM AND CARDIOVASCULAR STRUCTURES: Cardiac silhouette not enlarged. Central airways and mediastinal contour are unremarkable. BONES AND SOFT TISSUES: Unremarkable. RAD/Chest 1 View (Portable) IMPRESSION: No radiographic evidence of acute cardiopulmonary disease. Electronically Signed: Dwayne Tian MD at 9:53 EST ,
--- NOTE | 2024-07-22 09:04 | EKG12_ITS ---
Test Reason : CP Blood Pressure : */* mmHG Vent. Rate : 80 BPM Atrial Rate : 80 BPM P-R Int : 128 ms QRS Dur : 80 ms QT Int : 384 ms P-R-T Axes : 51 53 38 degrees QTcB Int : 442 ms Normal sinus rhythm with sinus arrhythmia Normal ECG Confirmed by ARY ROMERO, SUSANNA ([id number]), mapping editor DAVID TREVIÑO ([id number]) on 07/24/2024 7:59:04 AM Referred By: Confirmed By: SUSANNA MCALLISTER MD
--- NOTE | 2024-07-22 09:05 | EDS_ITS ---
HPI History of Present Illness Chief Complaint: Chest Pain Informant: patient Narrative Narrative: 29-year-old female presenting to the emergency room with the chief complaint of chest pain. Patient states that she woke around 0500 hrs. with a achiness in her lower chest. She states that she does feel slightly short of breath with that it seems to be worse when she bends over. It is not made worse with certain movements. She thinks that maybe it is worse with deep breathing. She denies any nausea vomiting belching. No abdominal discomfort. No rashes. No cough or fever. She has not had this before. Non-smoker. Currently not on any medications. [facility] Medical History Labral tear of right hip joint Right hip pain PONV (postoperative nausea and vomiting) Impingement of right shoulder Derangement of right acromioclavicular joint Right shoulder pain Wears partial dentures Anemia Plica syndrome, left knee Chondromalacia, patella Derangement of left knee Bone marrow edema Acute medial meniscal injury of left knee Home Medications ?Medication ?Instructions ?Recorded ?Last Taken ?Type NK 08/29/23 Unknown History Allergy/AdvReac Type Severity Reaction Status Date / Time No Known Allergies Allergy Verified 03/06/24 08:14 Family History Mother POTS (postural orthostatic tachycardia syndrome) Grandfather CVA (cerebral vascular accident) Myocardial infarction Diabetes Grandmother CVA (cerebral vascular accident) Surgical History Hx of section Hx of left knee surgery Social History household members: spouse, family and children number of children: 1 Smoking Status: Never smoker alcohol intake: never ROS ROS ED Constitutional Constitutional ED: Denies chills, fever(s) or weight loss Eyes Eyes: Denies change in vision or diplopia ENT ENT ED: Denies ear pain, rhinorrhea or sore throat Cardiovascular Cardiovascular: Reports as per HPI and chest pain; Denies orthopnea, palpitations or racing heartbeat Respiratory/Chest Respiratory/Chest: Reports dyspnea; Denies cough or orthopnea Gastrointestinal Gastrointestinal: Denies abdominal pain, diarrhea, nausea or vomiting Genitourinary Genitourinary ED: Denies dysuria, hematuria or urinary frequency Musculoskeletal Musculoskeletal: Denies arthralgias or myalgias Integumentary Denies abscess or rash Neurologic Neurologic: Denies headache(s) or weakness Psychiatric Psychiatric: Denies anxiety, depression, suicidal ideation or suicidal thoughts Endocrine Endocrinology: Denies polydipsia, polyphagia or polyuria Allergic/Immunologic Allergic/Immunologic ED: Denies mouth swelling, tongue swelling or urticaria EXAM Physical Exam Const Vital Signs: 07/22/24 08:46 07/22/24 09:46 07/22/24 09:59 Temperature 96.9 F L Temperature Source Temporal Pulse Rate 79 81 82 Respiratory Rate 20 H 18 19 H Blood Pressure 126/67 H 115/78 114/74 Blood Pressure Mean 86 90 87 Pulse Ox 94 98 97 Oxygen Delivery Method Room Air Room Air Room Air 07/22/24 10:14 Temperature 98.3 F Temperature Source Pulse Rate 81 Respiratory Rate 19 H Blood Pressure 115/72 Blood Pressure Mean 86 Pulse Ox 98 Oxygen Delivery Method Positive well nourished and well developed General Appearance ED: well developed HEENT Reports normocephalic, head/scalp atraumatic and moist mucous membranes Eyes PERRL and EOMs intact bilaterally Neck no lymphadenopathy, supple and no JVD Chest Wall inspection of chest normal and palpation of chest normal Chest Narrative: No pain with movement of arms. Resp normal respiratory effort and clear to auscultation bilaterally Cardio regular rate, regular rhythm and no murmurs GI normal to inspection, nondistended, normoactive bowel sounds and non-tender Palpation: soft Back/Spine no CVA tenderness and normal ROM Extremity normal to inspection General Extremety ED: Negative for edema General Extremity: Negative for edema Neuro oriented x3 and CN's II-XII intact bilaterally Sensorium / Orientation: alert Motor Exam: strength 5/5 throughout Psych mental status grossly normal Mood & Affect: Negative for depressed or tearful Skin no rashes or lesions noted and no wounds MDM MDM MDM Narrative Medical decision making narrative: Differential diagnosis includes but not limited to acute coronary syndrome pericarditis or costochondritis chest wall pain pleurisy esophagitis My independent interpretation of the single view chest x-ray is normal mediastinum no acute process. White count nonspecifically elevated 14.3. Normal troponin of 3 D-dimer 0.32 BMP within normal limits. Patient got no relief with a GI cocktail. Clinically I cannot make this pain recur with palpation or with movements. Do not feel at this time it is obviously esophageal in nature. I do not feel that it is cardiac in nature I do not see evidence of PE or dissection. I think there is a good chance that this is chest wall related. She is to monitor for any changes with food or indigestion. Return if worsening or concerns History & Record Review Discussion w/independent historian: Patient Lab Data Attestation: I reviewed the patient's lab results. Labs: Laboratory Results - last 24 hr 07/22/24 09:00 WBC 14.3 H RBC 5.08 Hgb 15.8 H Hct 45.4 MCV 89.4 MCH 31.1 MCHC 34.8 RDW Std Deviation 37.3 RDW Coeff of Tg 11.5 L Plt Count 351 MPV 9.3 Immature Gran % (Auto) 0.300 Neut % (Auto) 76.1 H Lymph % (Auto) 15.1 L Yates % (Auto) 7.3 Eos % (Auto) 0.7 Baso % (Auto) 0.5 Absolute Neuts (auto) 10.9 H Absolute Lymphs (auto) 2.16 Nucleated RBC % 0 D-Dimer Quant (PE/DVT) 0.32 Sodium 142 Potassium 3.6 Chloride 106 Carbon Dioxide 27.0 Anion Gap 8 BUN 10 Creatinine 0.79 Estim Creat Clear Calc 100.14 Est GFR (MDRD) Af Amer 112 Est GFR (MDRD) Non-Af 92 BUN/Creatinine Ratio 12.6 Glucose 89 Calcium 9.8 Troponin I High Sens 3 Radiography Diagnostic Testing: Clinical Impression(s) from Imaging Studies Chest X-Ray 07/22/24 09:04 IMPRESSION: No radiographic evidence of acute cardiopulmonary disease. Electronically Signed: Dwayne Tian MD at 9:53 EST , EKG Initial EKG: Attestation: I personally reviewed and interpreted this EKG as follows: Comments: Normal sinus rhythm ventricular rate of 80 bpm Discharge Plan Triage Chief Complaint: Chest Pain ED Provider: Ravi Carrasco Dx/Rx/DC Orders Clinical Impression: Chest pain Instructions: ED Chest Pain, Noncardiac Prescriptions: No Action NK Primary Care Provider: Care Physician,No Primary Referrals: Care Physician,No Primary [Primary Care Provider] - Print Language: Japanese Disposition Disposition: Home, Self Care
[2024-07-22] MEDS: Lidocaine 2% Viscous15 ML UDC 15 ML PO (09:09)
[2024-07-22] MEDS: Mag Hydrox/Al Hydrox/Simeth 30 ML UDC PO (09:09)
[2024-07-22 09:13] LABS: Absolute Lymphocyte Count 2.16 X10^3/uL (0.83-4.51); Absolute Neutrophil Count 10.9 X10^3/uL (2.0-7.7); Basophil# 0.07 X10^3/uL; Basophil% 0.5 % (0-1); Eosinophils% 0.7 % (0-5); Hematocrit 45.4 % (37-47); Hemoglobin 15.8 g/dL (12.0-15.0); Lymphocyte # 2.16 X10^3/ul (0.83-4.51); Lymphocyte % 15.1 % (19-41); Mean Corp Hgb Conc 34.8 g/dL (32-36); Mean Corpuscular Hgb 31.1 pg (27.0-32.0); Mean Corpuscular Volume 89.4 fL (81-99); Mean Platelet Vol. 9.3 fl (6.2-12.0); Monocyte# 1.04 X10^3/uL; Monocyte% 7.3 % (0-10); NRBC Flagged by Analyzer 0 % (0-5); Neutrophil # 10.88 X10^3/uL (2.7-7.7); Neutrophil % 76.1 % (47-70); Platelet Count 351 K/mm3 (150-450); RBC Distribution Width CV 11.5 % (11.6-14.6); RBC Distribution Width SD 37.3 fl (35.1-43.9); Red Blood Count 5.08 M/mm3 (4.2-5.4); White Blood Count 14.3 K/mm3 (4.4-11.0)
[2024-07-22 09:32] LABS: D-Dimer Quantitative (DVT/PE) 0.32 FEU/ug/m (0.27-0.49)
[2024-07-22 09:46] VITALS: BP 115/78; PULSE 81; RESP 18; O2SAT 98
[2024-07-22 09:59] VITALS: BP 114/74; PULSE 82; RESP 19; O2SAT 97
[2024-07-22 10:01] LABS: Anion Gap 8 (5-15); BUN 10 mg/dL (7-18); BUN/Creat Ratio 12.6 RATIO (10-20); Calcium,Total 9.8 mg/dL (8.5-10.1); Chloride 106 mmol/L (98-107); Creatinine, Serum 0.79 mg/dL (0.55-1.02); EST Glomerular Filtration Rate 92 mL/min (>60); Est Glom Filt Rate - Afr Amer 112 mL/min (>60); Estimated Creatinine Clearance 100.14 ml/min; Glucose 89 mg/dL (74-106); Potassium 3.6 mmol/L (3.5-5.1); Sodium Level 142 mmol/L (136-145); Troponin-I HS 3 pg/mL (3.0-54.0)
[2024-07-22 10:14] VITALS: BP 115/72; PULSE 81; RESP 19; TEMP 36.8; O2SAT 98
== END 2024-07-22 10:21 | disposition home or self-care (01) ==
PROVIDERS: Emergency Provider Emergency Medicine; Visit Provider Emergency Medicine
DX: R07.9 Chest pain, unspecified (principal)
CPT/HCPCS: 71045; 80048; 84484; 85025; 85379; 93005; 99283; A4216

== ENCOUNTER 2024-10-08 11:50 | Outpatient (RCR) | payer OTHER, SELFPAY ==
--- NOTE | 2024-10-08 12:48 | HP.PTEVAL ---
Patient's Visit Information Visit Information Visit Information: SHAYY AGUIAR is a 29 year old F referred to Physical Therapy by DELVIS Akhtar with a diagnosis of LBP. Date of Evaluation: 10/08/24 Physical Therapist: Rush Burnett, MILADYT, OCS, CSCS Visit Plan Frequency: 2-3x /Week Duration: 4-6 Weeks Plan: 2-3x/week for 3-6 weeks 1/ ppostural correction, ext biased Lumbar ROM and progression, mobs PA lumbar and thoracic progressing to core , hip and postural/LE strngth from mat to gym with pics and list. May use TENS and Mh if needed and STM to R LB as needed. IE HEP: PPU, sit only with towel roll in firm chair and avoid forward bending/ aggravating activities Subjective Subjective: LBP for 5 yrs on and off but daily for two weeks and not sure why. 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 Hurt 5 yrs ago falling off but never got it looked at it. x ray was OK. LBP and to the right and it is worse bending and cleaning house. Sitting is worse for long time. sleeping is interrupted, hard to get comfortable at night. Worse in pm if does too much. Employed for [employer] work one hour to two hours per day. On couch with phone for an hour also. Scheduling. Spends day cleaning house and gts worse. 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 Regular exercise: no. Soemtimes goes to gym. Pain R LBP: Pain Intensity (Out of 10): 5 Pain Intensity Range: 5 and 8 Objective Objective: Walks into PT I without gait deviations. Transfers slow to stand but I. Bed transfer I. LB AROM is min limited in ext and painful R LB, R SB min limited and painful, L SB good. Flexion slow mostly on recovery and min limited. Tender to palpation with PA pressure L23 and L5s1 as well as in R paraspinals L5 into sacrum and gluts minimally. reflexes 2/3 patella adn achilles B. Sensation LE WNL to gross light touch B LE streength in ankles 4+, knees 4 B, hips 3 rotations and abd and ext, flexion 3+ and contralateral hip instability, pt is leaning and hard time stabilizing with seated testing. + instability test with UE testing. - SLR, - Slump test. repeated motion eext increased ROM quickly, NE on pain but better walking after repeeated ext. Balance/Special Test Scores Oswestry Low Back Score: 13 Goals Goal 1:: Get to sleep without pain in LB Goal Time Frame: 4-6 Weeks Goal 2:: I appropriate core adn hip and LE stength to minimize future problems Goal Time Frame: 4-6 Weeks Goal 3:: sit without VC with appropriate upright posture. Goal Time Frame: 4-6 Weeks Goal 4:: sit for work without increased pain Goal Time Frame: 4-6 Weeks Rehabilitation Potential Physical Therapy Diagnosis: Loss of ROM and very unstable spine with hypermobility leading to funcitonal limitations due to pain Rehabilitation Potential: Good Anticipated Interventions Patient/Client Instruction: Educate patient on: Condition and Plan of Care For the Purpose of:: To decrease pain, To increase ROM, To improve nutrient delivery to tissue, To improve muscle performance and motor function, To increase tolerance to activity/condition/position, To improve ability of physical actions for home/community/work/leisure and To improve gait and locomotor functions Therapeutic Exercise to Include: Strength training, Postural training, Passive ROM, Active ROM and Aroldo Exercises For the Purpose of:: To decrease pain, To increase ROM, To improve nutrient delivery to tissue, To improve muscle performance and motor function, To improve ability to perform ADL's, To increase tolerance to activity/condition/position, To decrease level of supervision to perform tasks and To improve ability of physical actions for home/community/work/leisure Manual Therapy Techniques to Include: Mobilization, Passive ROM and Soft tissue mobilization For the Purpose of:: To decrease pain, To increase ROM and To improve nutrient delivery to tissue TENS: Yes Thermo therapy (hot pack): Yes For the Purpose of:: To decrease pain, To increase ROM and To improve nutrient delivery to tissue Text: Thank you for the opportunity to evaluate your patient. For Medicare and Medicare HMO plans, please review the plan of care and approve it. It will need to be FAXED BACK to us at [phone] for Medicare purposes. For Medicare only, by signing this I certify the plan of care. Please let me know if there are questions or concerns regarding this plan of care. Physician Signature: Date:
--- NOTE | 2024-12-19 08:29 | HP.PTDCNRP_ITS ---
Patient Information Patient Information: SHAYY AGUIAR was seen in my office for initial evaluation on 10/08/24. The following Plan of Care was established for this patient: POC Established Initial Frequency: 2-3x /Week Initial Duration: 4-6 Weeks Anticipated Interventions Patient/Client Instruction: Educate patient on: Condition and Plan of Care For the Purpose of:: To decrease pain, To increase ROM, To improve nutrient delivery to tissue, To improve muscle performance and motor function, To increase tolerance to activity/condition/position, To improve ability of phy sical actions for home/community/work/leisure and To improve gait and locomotor functions Therapeutic Exercise to Include: Strength training, Postural training, Passive ROM, Active ROM and Aroldo Exercises For the Purpose of:: To decrease pain, To increase ROM, To improve nutrient delivery to tissue, To improve muscle performance and motor function, To improve ability to perform ADL's, To increase tolerance to activity/condition/position, To decrease level of supervision to perform tasks and To improve ability of physical actions for home/community/work/leisure Manual Therapy Techniques to Include: Mobilization, Passive ROM and Soft tissue mobilization For the Purpose of:: To decrease pain, To increase ROM and To improve nutrient delivery to tissue TENS: Yes Thermo therapy (hot pack): Yes For the Purpose of:: To decrease pain, To increase ROM and To improve nutrient delivery to tissue Last Seen Last Seen: This patient was last seen in our office 10/08/24. Pertinent comments regarding their Physical therapy will appear below: Pt seen for IE and POC established. At this point, pt has not returned call to schedule any further visits and at this point, it has been over 2 months and I will discontinue from my care. At this point I will be discontinuing this patient from physical therapy. I would be happy to see this patient again in the future if found appropriate by the physician. Thank you! Rush Burnett, DPT, OCS, CSCS Balance/Gait/Functional tests Balance/Special Test Scores Oswestry Low Back Score: 13
== END 2024-10-08 19:00 | disposition home or self-care (01) ==
LOC: PT 11:50
PROVIDERS: Referring Provider Student in an Organized Health Care Education/Training Program; Visit Provider Student in an Organized Health Care Education/Training Program
DX: M54.50 Low back pain, unspecified (principal)
CPT/HCPCS: 97161